=== PATIENT | male | born 1990 | race Caucasian/White ===

== ENCOUNTER 2018-08-22 14:28 | Emergency (ER) | payer MEDICAID ==
[~2018-08-22] VITALS: Ht 188 cm; Wt 117.9 kg
[2018-08-22 14:30] VITALS: BP_SYST 129
--- NOTE | 2018-08-22 15:15 | NUR ---
1515 - Patient to ER bed 4 to gown for evaluation. Side rails up. Report given to KVNG Paredes.
--- NOTE | 2018-08-22 15:35 | NUR ---
Pt c/o intermittent CP. Pt denies pain and this time. Pt describing pain as tingling in face.Pt reports h/o asthma. Pt reports pain started 2 days ago.
[2018-08-22 16:06] LABS: CALCIUM 8.6 mg/dL (8.4-11.0); CREATININE 1.32 mg/dL (0.55-1.30); POTASSIUM 3.7 mmol/L (3.5-5.1)
--- NOTE | 2018-08-22 16:09 | NUR ---
ER at bedside examining patient.
[2018-08-22 16:12] LABS: ALBUMIN 3.8 g/dL (3.4-4.8); TOTAL BILIRUBIN 0.9 mg/dL (0.0-1.0)
[2018-08-22] MEDS ORDERED: LORazepam 1 MG TABLET PO ONE (16:15)
[2018-08-22 16:25] LABS: HEMATOCRIT 40.7 % (36-54); MEAN CORPUSCULAR HEMOGLOBIN 31 pg (27-31); MEAN CORPUSCULAR HGB CONC 34 % (32-36); MEAN CORPUSCULAR VOLUME 91 fL (79.0-98.0); RED BLOOD CELL COUNT(AUTO) 4.48 MIL/uL (4.2-6.2); RED CELL DISTRIBUTION WIDTH 12.6 % (9.0-15.0); WHITE BLOOD COUNT (AUTO) 8.6 K/uL (4.8-10.8)
[2018-08-22 16:26] LABS: BASOPHILS # (AUTO) 0.1 K/uL (0.0-0.2); BASOPHILS % (AUTO) 0.6 % (0.0-2.0); EOSINOPHILS # (AUTO) 0.3 K/uL (0.0-0.4); LYMPHOCYTES # (AUTO) 2.8 K/uL (1.0-5.5); LYMPHOCYTES % (AUTO) 32.4 % (20.5-51.5); MONOCYTES # (AUTO) 0.9 K/uL (0.0-1.0); MONOCYTES % (AUTO) 10.9 % (1.7-9.3); NEUTROPHILS # (AUTO) 4.5 K/uL (1.8-7.7); NEUTROPHILS % (AUTO) 52.1 % (40.0-70.0); PLATELET COUNT (AUTO) 243 K/uL (130-430)
--- NOTE | 2018-08-22 16:40 | NUR ---
Patient given written and verbal discharge instructions and verbalizes understanding. ER MD discussed with patient the results and treatment provided. Patient in stable condition. ID arm band removed. No Rx given. Patient educated on pain management and to follow up with PMD. Pain Scale 0/10 Opportunity for questions provided and answered. Medication side effect fact sheet provided.
[2018-08-22 16:41] VITALS: BP_SYST 135
== END 2018-08-22 16:40 | disposition home or self-care (01) ==
LOC: SED 14:28
DX: R07.89 Other chest pain (principal); J45.909 Unspecified asthma, uncomplicated; F17.220 Nicotine dependence, chewing tobacco, uncomplicated
CPT/HCPCS: 36415; 71045; 80053; 84484; 85025; 93005; 99284

== ENCOUNTER 2019-05-29 20:01 | Emergency (ER) | payer MEDICAID ==
[~2019-05-29] VITALS: Ht 188 cm; Wt 113.4 kg
[2019-05-29 20:05] VITALS: BP_SYST 146
[2019-05-29] MEDS ORDERED: NACL 0.9% 1,000 ML IV ONE (20:30)
[2019-05-29] MEDS ORDERED: ONDANSETRON HCL 4 MG/2 ML VIAL IVP ONE (20:30)
[2019-05-29] MEDS ORDERED: ALBUTEROL SULFATE 0.083% 2.5 MG/3 ML VIAL.NEB INH ONE (20:30)
[2019-05-29 20:38] LABS: BASOPHILS # (AUTO) 0.1 K/uL (0.0-0.2); BASOPHILS % (AUTO) 0.6 % (0.0-2.0); EOSINOPHILS # (AUTO) 0.5 K/uL (0.0-0.4); EOSINOPHILS % (AUTO) 5.1 % (0.0-4.0); HEMATOCRIT 39.8 % (36-54); HEMOGLOBIN 14.1 g/dL (14.0-18.0); LYMPHOCYTES # (AUTO) 2.1 K/uL (1.0-5.5); LYMPHOCYTES % (AUTO) 23.9 % (20.5-51.5); MEAN CORPUSCULAR HEMOGLOBIN 32 pg (27-31); MEAN CORPUSCULAR HGB CONC 35 % (32-36); MEAN CORPUSCULAR VOLUME 90 fL (79.0-98.0); MONOCYTES # (AUTO) 1.5 K/uL (0.0-1.0); MONOCYTES % (AUTO) 16.8 % (1.7-9.3); NEUTROPHILS # (AUTO) 4.8 K/uL (1.8-7.7); NEUTROPHILS % (AUTO) 53.6 % (40.0-70.0); PLATELET COUNT (AUTO) 245 K/uL (130-430); RED BLOOD CELL COUNT(AUTO) 4.43 MIL/uL (4.2-6.2); RED CELL DISTRIBUTION WIDTH 12.6 % (9.0-15.0); WHITE BLOOD COUNT (AUTO) 8.9 K/uL (4.8-10.8)
[2019-05-29 20:52] LABS: CALCIUM 8.7 mg/dL (8.4-11.0); CREATININE 1.31 mg/dL (0.55-1.30); POTASSIUM 3.9 mmol/L (3.5-5.1)
[2019-05-29 21:07] LABS: ALBUMIN 4.2 g/dL (3.4-4.8); TOTAL BILIRUBIN 0.7 mg/dL (0.0-1.0)
[2019-05-29 22:20] VITALS: BP_SYST 141
== END 2019-05-29 22:20 | disposition home or self-care (01) ==
LOC: SED 20:01
DX: R06.02 Shortness of breath (principal); R11.2 Nausea with vomiting, unspecified; J45.909 Unspecified asthma, uncomplicated; F17.220 Nicotine dependence, chewing tobacco, uncomplicated
CPT/HCPCS: 36415; 71045; 80053; 83880; 84484; 85025; 85379; 93005; 94640; 96361; 96374; 99284; J2405; J7030; J7613

== ENCOUNTER 2019-06-16 11:29 | Emergency (ER) | payer MEDICAID ==
[~2019-06-16] VITALS: Ht 188 cm; Wt 113.4 kg
[2019-06-16 11:45] VITALS: BP_SYST 127
--- NOTE | 2019-06-16 12:30 | NUR ---
Patient to ER bed H1 to gown for evaluation. Side rails up.
--- NOTE | 2019-06-16 12:40 | NUR ---
Pt brought self to ED ambulatory AO4 c/o flu like symptoms. Nausea, vomiting, general weakness, no respiratory distress
[2019-06-16] MEDS ORDERED: NACL 0.9% 1,000 ML IV ONE (12:45)
[2019-06-16] MEDS ORDERED: KETOROLAC TROMETHAMINE 30 MG VIAL IVP ONE (12:45)
--- NOTE | 2019-06-16 12:45 | NUR ---
Dr Ellis at bedside to assess pt
--- NOTE | 2019-06-16 12:45 | NUR ---
normal saline bolus and toradol administered
--- NOTE | 2019-06-16 14:39 | NUR ---
Linda purdy in EDM - 06/16/19 at 1442 by SDEDDW Pt brought self to ED ambulatory AO4 c/o flu like symptoms. Nausea, vomiting, general weakness, no respiratory distress
[2019-06-16 15:00] VITALS: BP_SYST 127
--- NOTE | 2019-06-16 15:00 | NUR ---
Patient given written and verbal discharge instructions and verbalizes understanding. ER MD discussed with patient the results and treatment provided. Patient in stable condition. ID arm band removed. IV catheter removed intact and dressing applied, no active bleeding. Rx of Motrin, Prednisone, Tamiflu given. Patient educated on pain management and to follow up with PMD. Pain Scale 0. Opportunity for questions provided and answered. Medication side effect fact sheet provided.
== END 2019-06-16 15:00 | disposition home or self-care (01) ==
LOC: SED 11:29
DX: J11.1 Influenza due to unidentified influenza virus with other respiratory manifestations (principal); J45.909 Unspecified asthma, uncomplicated; F17.220 Nicotine dependence, chewing tobacco, uncomplicated
CPT/HCPCS: 86710; 99283; J7030; 36415

== ENCOUNTER 2019-06-24 20:25 | Emergency (ER) | payer MEDICAID ==
[~2019-06-24] VITALS: Ht 188 cm; Wt 113.4 kg
[2019-06-24 22:44] VITALS: BP_SYST 138
--- NOTE | 2019-06-24 22:50 | NUR ---
Pt placed to ER waiting room in stable condition. Pts child in arms.
--- NOTE | 2019-06-24 23:35 | NUR ---
Received patient AA0x4, w/ cc of flu like s/s. NAD, NOTED. Pt. made comfortable. Pending ED MD assessment
[2019-06-25] MEDS ORDERED: KETOROLAC TROMETHAMINE 60 MG/2 ML VIAL IM ONE (00:15)
[2019-06-25 00:50] VITALS: BP_SYST 134
--- NOTE | 2019-06-25 00:52 | NUR ---
Patient given written and verbal discharge instructions and verbalizes understanding. ER MD discussed with patient the results and treatment provided. Patient in stable condition. ID arm band removed. Rx for sudafed, motrin, norco, and prednisone given. Patient educated on pain management and to follow up with PMD. Pain Scale 5/10. Opportunity for questions provided and answered. Medication side effect fact sheet provided.
== END 2019-06-25 00:52 | disposition home or self-care (01) ==
LOC: SED 20:25
DX: J32.9 Chronic sinusitis, unspecified (principal); R05 Cough; J45.909 Unspecified asthma, uncomplicated; F17.200 Nicotine dependence, unspecified, uncomplicated
CPT/HCPCS: 86710; 96372; 99283; J1885; 36415

== ENCOUNTER 2019-07-05 17:26 | Emergency (ER) | payer MEDICAID ==
[~2019-07-05] VITALS: Ht 188 cm; Wt 113.4 kg
[2019-07-05 17:30] VITALS: BP_SYST 134
--- NOTE | 2019-07-05 17:30 | NUR ---
Patient triaged and placed in waiting room. VSS and patient appears in no acute distress at this time. Accompanied by SELF, awaiting available bed, and MD notified of need for MSE.
--- NOTE | 2019-07-05 20:30 | NUR ---
ER at bedside examining patient.
--- NOTE | 2019-07-05 20:30 | NUR ---
Pt brought in by self. Pt states that he had Eye discharge for the past few days. He states that he has reddnes and discharge, with burning. Pt denies chest pain, nausea, vomiting, diarrhea, Shortness of breath. Pt denies any other medical compliant at this time. Pt resting in bed, no acute distress. VSS
--- NOTE | 2019-07-05 20:30 | NUR ---
Patient to ER hallway bed for evaluation. Side rails up.
--- NOTE | 2019-07-05 21:40 | NUR ---
Patient given written and verbal discharge instructions and verbalizes understanding. ER MD discussed with patient the results and treatment provided. Patient in stable condition. ID arm band removed. NO IV Rx of Antibiotic eye ointment given. Patient educated on pain management and to follow up with PMD. Pain Scale 0/10. Opportunity for questions provided and answered. Medication side effect fact sheet provided.
== END 2019-07-05 21:40 | disposition home or self-care (01) ==
LOC: SED 17:26
DX: H10.9 Unspecified conjunctivitis (principal); J45.909 Unspecified asthma, uncomplicated
CPT/HCPCS: 99283

== ENCOUNTER 2019-12-04 15:54 | Emergency (ER) | payer MEDICAID ==
[~2019-12-04] VITALS: Ht 188 cm; Wt 113.4 kg
[2019-12-04 16:09] VITALS: BP_SYST 162
--- NOTE | 2019-12-04 16:14 | NUR ---
PATIENT RETURNED TO WAITING ROOM PENDING BED AVAILABILITY
--- NOTE | 2019-12-04 21:00 | NUR ---
in gurney, sitting up. No acute distess noted.
--- NOTE | 2019-12-04 21:05 | NUR ---
ER at bedside examining patient.
--- NOTE | 2019-12-04 22:00 | NUR ---
pt in [facility].
[2019-12-04 22:18] VITALS: BP_SYST 162
== END 2019-12-04 22:18 | disposition home or self-care (01) ==
LOC: SED 15:54
DX: M25.552 Pain in left hip (principal)
CPT/HCPCS: 72170-TC; 73502; 99284

== ENCOUNTER 2020-04-17 08:46 | Emergency (ER) | payer MEDICAID ==
[~2020-04-17] VITALS: Ht 188 cm; Wt 122.5 kg
[2020-04-17 08:53] VITALS: BP_SYST 145
--- NOTE | 2020-04-17 08:56 | NUR ---
Patient to ER bed 03 to gown for evaluation. Side rails up.
--- NOTE | 2020-04-17 09:18 | NUR ---
Pt came to ER after he felt hypoglycemic last night. He was experiencing dizziness, sweatiness, and feeling weak. He recently saw primary physician who said his A1C is near diabetic. Pt sugar checked 84 at this time.
--- NOTE | 2020-04-17 09:25 | NUR ---
ER at bedside examining patient.
[2020-04-17 10:08] LABS: CALCIUM 8.5 mg/dL (8.4-11.0); CREATININE 1.19 mg/dL (0.55-1.30); POTASSIUM 4.4 mmol/L (3.5-5.1)
[2020-04-17 10:10] LABS: BASOPHILS % (AUTO) 0.3 % (0.0-2.0); EOSINOPHILS # (AUTO) 0.1 K/uL (0.0-0.4); EOSINOPHILS % (AUTO) 0.7 % (0.0-4.0); HEMOGLOBIN 14.8 g/dL (14.0-18.0); LYMPHOCYTES # (AUTO) 0.7 K/uL (1.0-5.5); LYMPHOCYTES % (AUTO) 8.5 % (20.5-51.5); MEAN CORPUSCULAR HEMOGLOBIN 31 pg (27-31); MEAN CORPUSCULAR HGB CONC 34 % (32-36); MEAN CORPUSCULAR VOLUME 90 fL (79.0-98.0); MONOCYTES # (AUTO) 0.7 K/uL (0.0-1.0); MONOCYTES % (AUTO) 8.2 % (1.7-9.3); NEUTROPHILS # (AUTO) 6.8 K/uL (1.8-7.7); NEUTROPHILS % (AUTO) 82.3 % (40.0-70.0); PLATELET COUNT (AUTO) 200 K/uL (130-430); RED BLOOD CELL COUNT(AUTO) 4.76 MIL/uL (4.2-6.2); RED CELL DISTRIBUTION WIDTH 12.9 % (9.0-15.0); WHITE BLOOD COUNT (AUTO) 8.3 K/uL (4.8-10.8)
[2020-04-17 10:14] LABS: TOTAL BILIRUBIN 0.9 mg/dL (0.0-1.0)
[2020-04-17] MEDS ORDERED: ONDANSETRON 4 MG ODT TAB PO ONE (10:45)
--- NOTE | 2020-04-17 10:45 | NUR ---
Pt taken to ultrasound via wheelchair
[2020-04-17] MEDS ORDERED: ONDANSETRON 4 MG ODT TAB ONE (10:56)
[2020-04-17 12:26] VITALS: BP_SYST 145
--- NOTE | 2020-04-17 12:28 | NUR ---
Patient given written and verbal discharge instructions and verbalizes understanding. ER MD discussed with patient the results and treatment provided. Patient in stable condition. ID arm band removed. Rx of Naprosyn given. Patient educated on pain management and to follow up with PMD. Pain Scale 0/10 . Opportunity for questions provided and answered. Medication side effect fact sheet provided.
[2020-04-21 00:06] LABS: CHLAMYDIA TRACHOMATIS NAA Negative (Negative); NEISSERIA GONORRHOEAE NAA Negative (Negative)
== END 2020-04-17 12:28 | disposition home or self-care (01) ==
LOC: SED 08:46
DX: N50.811 Right testicular pain (principal); E86.0 Dehydration; A08.4 Viral intestinal infection, unspecified; R42 Dizziness and giddiness; J45.909 Unspecified asthma, uncomplicated
CPT/HCPCS: 36415; 71045; 76870; 80053; 85025; 87491; 87591; 93005; 99285; Q0162

== ENCOUNTER 2020-05-01 02:32 | Emergency (ER) | payer MEDICAID ==
[~2020-05-01] VITALS: Ht 188 cm; Wt 127.0 kg
[2020-05-01 02:35] VITALS: BP_SYST 129
--- NOTE | 2020-05-01 02:35 | NUR ---
Patient to ER bed 5 to gown for evaluation. Side rails up. Report given to GREGOR.
--- NOTE | 2020-05-01 02:40 | NUR ---
PT AAO AND AMBULATORY REPORTING WORSENING HIVES ALL OVER HIS BODY. PT REPORTS THAT ONSET BEGAN AT 2200 TONIGHT AND THAT HE TOOK BENADRYL AT HOME THAT DID NOT PROVIDE RELIEF. IT IS UNKNOWN WHAT HE EXPOSED HIMSELF TO THAT PRODUCED ALLERGY. V/S STABLE WITH NO S/S OF DISTRESS.
--- NOTE | 2020-05-01 02:42 | NUR ---
ER Dr. WILSON at bedside examining patient.
[2020-05-01] MEDS ORDERED: methylPREDNISolone SOD SUCC/PF 62.5 MG/ML VIAL IM ONE (02:45)
--- NOTE | 2020-05-01 02:50 | NUR ---
Pt tolerated solu-medrol IM well. No complaints
[2020-05-01 03:00] VITALS: BP_SYST 129
--- NOTE | 2020-05-01 03:00 | NUR ---
Patient given written and verbal discharge instructions and verbalizes understanding. ER MD discussed with patient the results and treatment provided. Patient in stable condition. ID arm band removed. Rx of prednisone given. Patient educated on pain management and to follow up with PMD. Opportunity for questions provided and answered. Medication side effect fact sheet provided.
[2020-05-01] MEDS ORDERED: methylPREDNISolone SOD SUCC/PF 62.5 MG/ML VIAL ONE (03:07)
== END 2020-05-01 03:00 | disposition home or self-care (01) ==
LOC: SED 02:32
DX: L50.9 Urticaria, unspecified (principal); J45.909 Unspecified asthma, uncomplicated; F17.290 Nicotine dependence, other tobacco product, uncomplicated
CPT/HCPCS: 99283; J2930

== ENCOUNTER 2020-05-02 22:28 | Emergency (ER) | payer MEDICAID ==
[~2020-05-02] VITALS: Ht 188 cm; Wt 127.0 kg
[2020-05-02 22:40] VITALS: BP_SYST 148
[2020-05-02 23:18] VITALS: BP_SYST 148
== END 2020-05-02 23:18 | disposition home or self-care (01) ==
LOC: SED 22:28
DX: L50.9 Urticaria, unspecified (principal); R03.0 Elevated blood-pressure reading, without diagnosis of hypertension; J45.909 Unspecified asthma, uncomplicated
CPT/HCPCS: 99282

== ENCOUNTER 2020-06-01 20:35 | Emergency (ER) | payer MEDICAID ==
[~2020-06-01] VITALS: Ht 188 cm; Wt 119.3 kg
[2020-06-01 20:40] VITALS: BP_SYST 150
[2020-06-02 00:21] VITALS: BP_SYST 140
== END 2020-06-02 00:21 | disposition home or self-care (01) ==
LOC: SED 20:35
DX: M25.562 Pain in left knee (principal); J45.909 Unspecified asthma, uncomplicated
CPT/HCPCS: 73564; 99283

== ENCOUNTER 2020-07-11 19:55 | Emergency (ER) | payer MEDICAID ==
[~2020-07-11] VITALS: Ht 157.5 cm; Wt 120.2 kg
[2020-07-11 20:10] VITALS: BP_SYST 151
[2020-07-11 21:07] VITALS: BP_SYST 128
== END 2020-07-11 21:08 | disposition home or self-care (01) ==
LOC: SED 19:55
DX: U07.1 COVID-19 (principal); J06.9 Acute upper respiratory infection, unspecified; J45.909 Unspecified asthma, uncomplicated
CPT/HCPCS: 71045; 99284; U0003; C9803

== ENCOUNTER 2021-07-06 23:53 | Emergency (ER) | payer MEDICAID ==
[~2021-07-06] VITALS: Ht 188 cm; Wt 122.5 kg
[~2021-07-06 23:53] MED LIST: AUG875 PO; HYDR-3917 PO
[2021-07-07] VITALS: BP_SYST 148
[2021-07-07 01:25] LABS: HEMOGLOBIN 13.9 g/dL (14.0-18.0); MEAN CORPUSCULAR HEMOGLOBIN 30 pg (27-31); MEAN CORPUSCULAR HGB CONC 34 % (32-36); MEAN CORPUSCULAR VOLUME 90 fL (79.0-98.0); MONOCYTES # (AUTO) 1.1 K/uL (0.0-1.0)
[2021-07-07 01:29] LABS: CALCIUM 8.9 mg/dL (8.4-11.0); CREATININE 1.01 mg/dL (0.55-1.30); POTASSIUM 3.9 mmol/L (3.5-5.1)
[2021-07-07 01:40] LABS: ALBUMIN 4.1 g/dL (3.4-4.8); TOTAL BILIRUBIN 0.6 mg/dL (0.0-1.0)
[2021-07-07 02:35] LABS: BASOPHILS % (AUTO) 0.5 % (0.0-2.0); EOSINOPHILS # (AUTO) 0.3 K/uL (0.0-0.4); HEMATOCRIT 41.4 % (36-54); LYMPHOCYTES # (AUTO) 3.9 K/uL (1.0-5.5); MONOCYTES % (AUTO) 11.9 % (1.7-9.3); NEUTROPHILS % (AUTO) 42.6 % (40.0-70.0); PLATELET COUNT (AUTO) 241 K/uL (130-430); RED BLOOD CELL COUNT(AUTO) 4.61 MIL/uL (4.2-6.2); RED CELL DISTRIBUTION WIDTH 12.9 % (9.0-15.0); WHITE BLOOD COUNT (AUTO) 9.4 K/uL (4.8-10.8)
[2021-07-07] MEDS ORDERED: IBUP-1969 PO (03:30)
[2021-07-07 03:42] VITALS: BP_SYST 143
[2021-07-08] MEDS ORDERED: HYDR-3917 PO (17:10)
[2021-07-08] MEDS ORDERED: IBUP-1971 PO (17:10)
== END 2021-07-07 03:42 | disposition home or self-care (01) ==
LOC: SED 23:53
DX: K80.20 Calculus of gallbladder without cholecystitis without obstruction (principal); J45.909 Unspecified asthma, uncomplicated; Z79.899 Other long term (current) drug therapy
CPT/HCPCS: 36415; 76705; 80053; 83690; 85025; 99284

== ENCOUNTER 2021-07-08 13:55 | Inpatient (IN) | payer MEDICAID ==
[~2021-07-08] VITALS: Ht 188 cm; Wt 122.5 kg
[~2021-07-08 13:55] MED LIST changes: +IBUP-1969 PO
[2021-07-08 14:44] VITALS: BP_SYST 131
[2021-07-08] MEDS ORDERED: KETOROLAC TROMETHAMINE 60 MG/2 ML VIAL IM ONE ×2 (15:00→19:15)
--- NOTE | 2021-07-08 15:15 | NUR ---
AFTER GETTING BLOOD DRAWN, PT BROUGHT BACK TO BED #2 AND REPORT GIVEN TO NURSE
--- NOTE | 2021-07-08 15:15 | NUR ---
pt. in lab for blood draw
--- NOTE | 2021-07-08 15:32 | NUR ---
RECEIEVED PT, LAYING ON GURNEY. PT IN NO APPARENT DISTRESS. RESP EVEN AND UNLABORED ON RA @99%. REPORT COMING TO ER FOR RIGHT UPPER AND LOWER ABDOMINAL PAIN WORSENING FOR THE LAST 3 DAYS. DENIES ANY NAUSEA/VOMITIING. DENIES ANY FEVERS. MILD DYSURIA SINCE AM. SKIN W/D/I. URINE CLLECTED.
[2021-07-08 16:01] LABS: CREATININE 0.97 mg/dL (0.55-1.30); POTASSIUM 4.2 mmol/L (3.5-5.1)
[2021-07-08 16:10] LABS: BASOPHILS % (AUTO) 0.2 % (0.0-2.0); EOSINOPHILS # (AUTO) 0.1 K/uL (0.0-0.4); EOSINOPHILS % (AUTO) 1.9 % (0.0-4.0); HEMATOCRIT 41.6 % (36-54); HEMOGLOBIN 14.3 g/dL (14.0-18.0); LYMPHOCYTES # (AUTO) 0.6 K/uL (1.0-5.5); LYMPHOCYTES % (AUTO) 9.1 % (20.5-51.5); MEAN CORPUSCULAR HEMOGLOBIN 31 pg (27-31); MEAN CORPUSCULAR HGB CONC 34 % (32-36); MEAN CORPUSCULAR VOLUME 89 fL (79.0-98.0); MONOCYTES # (AUTO) 0.7 K/uL (0.0-1.0); MONOCYTES % (AUTO) 10.5 % (1.7-9.3); NEUTROPHILS # (AUTO) 5.5 K/uL (1.8-7.7); NEUTROPHILS % (AUTO) 78.3 % (40.0-70.0); PLATELET COUNT (AUTO) 201 K/uL (130-430); RED BLOOD CELL COUNT(AUTO) 4.67 MIL/uL (4.2-6.2); RED CELL DISTRIBUTION WIDTH 12.8 % (9.0-15.0)
[2021-07-08 16:14] LABS: ALBUMIN 4.3 g/dL (3.4-4.8); TOTAL BILIRUBIN 0.9 mg/dL (0.0-1.0)
[2021-07-08 16:32] LABS: BILIRUBIN,URINE NEGATIVE (NEGATIVE); BLOOD, URINE NEGATIVE (NEGATIVE); CLARITY/URINE CLEAR (CLEAR); COLOR,URINE YELLOW (YELLOW); GLUCOSE,URINE NEGATIVE (NEGATIVE); KETONES,URINE NEGATIVE (NEGATIVE); LEUKOCYTE ESTERASE ,URINE NEGATIVE (NEGATIVE); NITRITE, URINE NEGATIVE (NEGATIVE); PROTEIN URINE NEGATIVE (NEGATIVE); UROBILINOGEN,URINE 0.2 (0.2-1.0)
[2021-07-08 16:58] LABS: C-REACTIVE PROTEIN QUANT 0.4 mg/dL (0-0.5)
[2021-07-08] MEDS ORDERED: HYDR-3917 PO (17:10)
[2021-07-08] MEDS ORDERED: IBUP-1971 PO (17:10)
[2021-07-08] MEDS ORDERED: MORPHINE SULFATE 10 MG/ML VIAL IM ONE (17:15)
--- NOTE | 2021-07-08 17:29 | NUR ---
PT HAS ORDERS FOR DISCHARGE WITH MORPHINE IM ORDERS. PT REFUSES MORPHINE, DR CASILLAS INFORMED. ALSO, PT STATES HIS PCP ANTED TO ADMIT HIM FOR GALLSTONES REMOVAL AND DOES NOT WANT TO BE DISCHARGED, WANTS TO BE ADMITTED. DR CASILLAS INFORMED, NOW AT BEDSIDE FOR RE-EXAM.
--- NOTE | 2021-07-08 17:48 | NUR ---
Notified ED Admitting regarding Dr. Reyez request for admission. will notify insurance assistant
[2021-07-08] MEDS: D5/0.45 NS 1,000 ML IV SCH (19:05)
--- NOTE | 2021-07-08 19:06 | NUR ---
PT CONT TO REPORT ABD PAIN AND REQUESTING TORADOL,, STATES HE DOES NOT LIKE MORPHINE. DR CASILLAS INFORMED.
--- NOTE | 2021-07-08 21:00 | NUR ---
Pt report received. Pt denies c/o pain or discomfort, no needs verbalized at this time. Pt has 20 GA PIV to RAC from previous shift that is patent and secure. JOEL MONTEIRO.
[2021-07-08] MEDS ORDERED: MORPHINE 2 MG/ML INJ. SYRINGE IVP PRN (22:45)
[2021-07-08] MEDS ORDERED: NALOXONE HCL 0.4 MG/ML AMP (NARCAN) IVP PRN (22:45)
[2021-07-08] MEDS ORDERED: LORazepam 2 MG/ML VIAL IVP PRN (22:45)
--- NOTE | 2021-07-08 23:19 | NUR ---
Patient will be admitted to care of Wali Quan Admitted to Med/Surg unit. Will go to room 133B. Belongings list completed. Complete and up to date summary report printed. SBAR report to be given at bedside with opportunity for questions.
[2021-07-08 23:38] VITALS: BP_SYST 147
--- NOTE | 2021-07-08 23:43 | NUR ---
CONSULTATION CALLED FOR DR. SHARP FOR CONSULT OF GALL[facility]ONES ORDER BY DR. JOHNSTON SPOKE WITH MARIO ALBERTO
[2021-07-08] MEDS: ONDANSETRON HCL 4 MG/2 ML VIAL IVP PRN (23:47)
[2021-07-08] MEDS: MORPHINE 4 MG INJ. 4 MG/ML VIAL IVP PRN (23:48)
--- NOTE | 2021-07-08 23:51 | NUR ---
ADMISSION: The patient, AGENT,MOMO Fink, 30 y/o, M admitted by KEN JOHNSTON MD, was given written information regarding hospital policies, unit procedures and contact persons. Valuables were checked and procedures explained , call raya instructions given Patient verbalize understanding .
--- NOTE | 2021-07-09 00:09 | NUR ---
CONSULTATION CALLED FOR DR. CARLOZ EVANS AIRCRAFT LAUNCH AND RECOVERY TECHNICIAN FOR CONSULT OF GALLSTONES ORDER BY DR. JOHNSTON SPOKE WITH ALICIA
--- NOTE | 2021-07-09 00:27 | NUR ---
ZOFRAN 4 MG IVP given FOR GI UPSET , monitor .
--- NOTE | 2021-07-09 00:27 | NUR ---
MORPHINE 4 MG IVP given for acute pain , monitor .
--- NOTE | 2021-07-09 05:34 | NUR ---
Hourly Rounding patient Resting chest movement symmetrical call raya given to patient .
[2021-07-09] MEDS: D5/0.45 NS 1,000 ML IV SCH ×3 (05:37→15:56)
[2021-07-09 08:00] VITALS: BP_SYST 131
[2021-07-09 08:02] LABS: BASOPHILS % (AUTO) 0.4 % (0.0-2.0); EOSINOPHILS # (AUTO) 0.1 K/uL (0.0-0.4); EOSINOPHILS % (AUTO) 1.8 % (0.0-4.0); HEMOGLOBIN 13.4 g/dL (14.0-18.0); LYMPHOCYTES # (AUTO) 1.3 K/uL (1.0-5.5); LYMPHOCYTES % (AUTO) 20.5 % (20.5-51.5); MEAN CORPUSCULAR HEMOGLOBIN 31 pg (27-31); MEAN CORPUSCULAR HGB CONC 34 % (32-36); MEAN CORPUSCULAR VOLUME 89 fL (79.0-98.0); MONOCYTES # (AUTO) 1.1 K/uL (0.0-1.0); MONOCYTES % (AUTO) 16.8 % (1.7-9.3); NEUTROPHILS # (AUTO) 3.8 K/uL (1.8-7.7); NEUTROPHILS % (AUTO) 60.5 % (40.0-70.0); PLATELET COUNT (AUTO) 189 K/uL (130-430); RED BLOOD CELL COUNT(AUTO) 4.37 MIL/uL (4.2-6.2); RED CELL DISTRIBUTION WIDTH 12.5 % (9.0-15.0); WHITE BLOOD COUNT (AUTO) 6.4 K/uL (4.8-10.8)
[2021-07-09 08:04] LABS: CALCIUM 8.3 mg/dL (8.4-11.0); CREATININE 1.1 mg/dL (0.55-1.30); PHOSPHORUS 4.5 mg/dL (2.7-4.5); POTASSIUM 3.9 mmol/L (3.5-5.1)
--- NOTE | 2021-07-09 08:15 | NUR ---
Initial Note Patient awake, alert, and oriented x 4. Reporting pain 9/10 to abdomen. Will review medications and administer pain medications as ordered. No cough or fever present. Call light and bedside table in reach. Bed locked in lowest position. Encouraged to call.
[2021-07-09] MEDS: MORPHINE 4 MG INJ. 4 MG/ML VIAL IVP PRN ×3 (09:38→20:53)
--- NOTE | 2021-07-09 12:00 | NUR ---
Notes Patient eating lunch. Pain is controlled, no distress. Call light in reach and bed in lowest position. Encouraged to call.
[2021-07-09 16:07] VITALS: BP_SYST 143
--- NOTE | 2021-07-09 16:09 | NUR ---
Notes Patient resting in bed. States pain is controlled at this time. No cough or fever. Needs addressed. Call light and bedside table within reach. Bed in lowest position. Encouraged to call.
--- NOTE | 2021-07-09 18:48 | NUR ---
Closing Note Patient resting in bed, no pain or distress. Safety and isolation precautions in place throughout shift. Call light and bedside table in reach. Will continue to monitor and endorse to night nurse.
[2021-07-09] MEDS ORDERED: ALBUTEROL SULFATE 0.083% 2.5 MG/3 ML VIAL.NEB INH PRN (19:00)
[2021-07-09] MEDS ORDERED: IPRATROPIUM BROM 0.5 MG/2.5 ML VIAL.NEB (ATROVENT) INH PRN (19:00)
[2021-07-09 20:30] VITALS: BP_SYST 135
[2021-07-09] MEDS: AZITHROMYCIN 500 MG in NS 250 ML IV SCH (20:48)
[2021-07-09] MEDS: cefTRIAXone 1 GM IVPB PREMIX 50 ML IV SCH (20:49)
[2021-07-09] MEDS: ONDANSETRON HCL 4 MG/2 ML VIAL IVP PRN (20:52)
--- NOTE | 2021-07-09 21:35 | NUR ---
MORPHINE sulfate 4 MG ivp administer for general discomfort / off loading with pillows also helpful .
[2021-07-09 23:56] VITALS: BP_SYST 143
--- NOTE | 2021-07-10 | NUR ---
ZOFRAN 4 MG IVP administer for GI upset & helpful .
[2021-07-10 01:00] VITALS: BP_SYST 132
--- NOTE | 2021-07-10 03:13 | NUR ---
Hourly Rounding patient Resting is verbally Responsive HOB elevated chest movement symmetrical 02 SAT 96 % on Room Air call raya with patient .
[2021-07-10] MEDS: D5/0.45 NS 1,000 ML IV SCH ×3 (03:20→16:15)
[2021-07-10] MEDS: MORPHINE 4 MG INJ. 4 MG/ML VIAL IVP PRN ×3 (06:30→16:04)
--- NOTE | 2021-07-10 07:40 | NUR ---
CONSULTATION PAGED/CALLED Reason for Consultation: [] COVID Person Who was Notified: [] JORGE Consulting Physician: [] DR ALFREDO MARADIAGA Senior Clinical Sas Programmer Specialty: [] ID Ordering Physician: [] DR JOHNSTON
[2021-07-10 08:00] VITALS: BP_SYST 144
--- NOTE | 2021-07-10 08:00 | NUR ---
OPENING NOTE Received shift report from shift engineer RN. Patient currently resting in bed and respirations remain even and non-labored on room air. IV is patent and infusing fluids as ordered. Bed locked in lowest position and call light is within reach. PUI precautions remain in place. Will continue to monitor. Addendum: 07/10/21 at 1046 by Khushboo Gao RN COVID isolation precautions remain in place.
[2021-07-10 08:34] LABS: BASOPHILS % (AUTO) 0.4 % (0.0-2.0); EOSINOPHILS # (AUTO) 0.2 K/uL (0.0-0.4); EOSINOPHILS % (AUTO) 4.7 % (0.0-4.0); HEMATOCRIT 40.2 % (36-54); HEMOGLOBIN 13.9 g/dL (14.0-18.0); LYMPHOCYTES # (AUTO) 1.5 K/uL (1.0-5.5); LYMPHOCYTES % (AUTO) 33.8 % (20.5-51.5); MEAN CORPUSCULAR HEMOGLOBIN 30 pg (27-31); MEAN CORPUSCULAR HGB CONC 35 % (32-36); MEAN CORPUSCULAR VOLUME 88 fL (79.0-98.0); MONOCYTES # (AUTO) 0.8 K/uL (0.0-1.0); MONOCYTES % (AUTO) 17.7 % (1.7-9.3); NEUTROPHILS % (AUTO) 43.4 % (40.0-70.0); PLATELET COUNT (AUTO) 178 K/uL (130-430); RED BLOOD CELL COUNT(AUTO) 4.57 MIL/uL (4.2-6.2); RED CELL DISTRIBUTION WIDTH 12.4 % (9.0-15.0); WHITE BLOOD COUNT (AUTO) 4.5 K/uL (4.8-10.8)
--- NOTE | 2021-07-10 08:54 | NUR ---
Notes Spoke with Dr. Gill regarding plan of care; states patient may follow up on outpatient basis after quarantine period.
[2021-07-10 09:09] LABS: ALBUMIN 3.3 g/dL (3.4-4.8); C-REACTIVE PROTEIN QUANT 4.8 mg/dL (0-0.5); CALCIUM 8.4 mg/dL (8.4-11.0); CREATININE 0.97 mg/dL (0.55-1.30); POTASSIUM 3.8 mmol/L (3.5-5.1); TOTAL BILIRUBIN 0.7 mg/dL (0.0-1.0)
--- NOTE | 2021-07-10 12:00 | NUR ---
RN ROUNDING Patient resting in bed. Patient reported 5/10 abdominal pain controlled by PRN morphine. Bed locked in lowest position and call light is within reach. Will continue to monitor.
[2021-07-10 12:05] VITALS: BP_SYST 150
[2021-07-10 13:11] LABS: ERYTHROCYTE SEDIMENTATION RATE 9 MM/HR (0-15)
[2021-07-10] MEDS: ONDANSETRON HCL 4 MG/2 ML VIAL IVP PRN ×2 (14:37→21:56)
--- NOTE | 2021-07-10 15:00 | NUR ---
SHOWER Patient requested shower in room. Provided toiletries and hygiene supplies. Assistance provided. Encouraged to call.
[2021-07-10 16:17] VITALS: BP_SYST 146
--- NOTE | 2021-07-10 18:35 | NUR ---
CLOSING NOTE Patient currently eating dinner in bed and respirations remain even and non-labored on room air. IV is patent and infusing fluids as ordered. All needs met throughout shift. Bed locked in lowest position and call light is within reach. COVID isolation precautions remain in place. Will endorse to table games shift manager RN.
--- NOTE | 2021-07-10 19:12 | NUR ---
PATIENT LAYING IN BED, RESTING WITH EYES OPEN, NO C/O PAIN OR S/S OR DISTRESS. PATIENT'S VSS, CHEST RISE AND FALL SYMMETRICAL. Addendum: 07/11/21 at [address] [facility] middleware solutions architect PATIENT LAYING IN BED, RESTING WITH EYES OPEN, NO C/O PAIN OR S/S OR DISTRESS. PATIENT'S VSS, CHEST RISE AND FALL SYMMETRICAL. BED IN LOW AND LOCKED POSITION, 3 BED RAILS UP AND CALL LIGHT WITHIN REACH.
[2021-07-10 20:00] VITALS: BP_SYST 144
[2021-07-10] MEDS: cefTRIAXone 1 GM IVPB PREMIX 50 ML IV SCH (21:57)
[2021-07-10] MEDS: AZITHROMYCIN 500 MG in NS 250 ML IV SCH (22:06)
--- NOTE | 2021-07-11 | NUR ---
Patient resting in bed with eyes closed, no c/o pain or s/s of discomfort. Patient VSS, lung sounds clear and chest rise and fall symmetrical. Addendum: 07/11/21 at 0744 by [employer] in tube conversion technician Patient resting in bed with eyes closed, no c/o pain or s/s of discomfort. Patient VSS, lung sounds clear and chest rise and fall symmetrical. Bed in low and locked position, bed rails up and call light within reach of patient. Report given to AM shift RN, no further questions from AM shift RN. Addendum: 07/11/21 at 0746 by [employer] in tube conversion technician Patient resting in bed with eyes closed, no c/o pain or s/s of discomfort. Patient VSS, lung sounds clear and chest rise and fall symmetrical. Bed in low and locked position, 3 bed rails up and call light within reach of patient. Report given to AM shift RN, no further questions from AM shift RN. Addendum: 07/11/21 at 0747 by [employer] in tube conversion technician Patient resting in bed with eyes closed, no c/o pain or s/s of discomfort. Patient VSS, lung sounds clear and chest rise and fall symmetrical. Bed in low and locked position, 3 bed rails up and call light within reach of patient.
[2021-07-11 00:03] VITALS: BP_SYST 142
[2021-07-11] MEDS ORDERED: HYDROcodone/ACETAMIN 10-325 MG TAB PO PRN (00:30)
[2021-07-11] MEDS ORDERED: NALOXONE HCL 0.4 MG/ML AMP (NARCAN) IVP PRN ×2 (00:30)
[2021-07-11] MEDS ORDERED: HYDROcodone/ACETAMIN 5-325 MG TAB (NORCO/ VICODIN) PO PRN (00:30)
[2021-07-11 04:11] VITALS: BP_SYST 140
[2021-07-11] MEDS: D5/0.45 NS 1,000 ML IV SCH ×2 (06:30→17:39)
--- NOTE | 2021-07-11 07:30 | NUR ---
Patient resting in bed with eyes closed, no c/o pain or s/s of discomfort. Patient VSS, lung sounds clear and chest rise and fall symmetrical. Bed in low and locked position, 3 bed rails up and call light within reach of patient. Report given to AM shift RN, no further questions from AM shift RN.
[2021-07-11 07:44] LABS: CALCIUM 8.5 mg/dL (8.4-11.0); CREATININE 0.93 mg/dL (0.55-1.30)
[2021-07-11 07:54] LABS: BASOPHILS % (AUTO) 0.5 % (0.0-2.0); EOSINOPHILS # (AUTO) 0.3 K/uL (0.0-0.4); EOSINOPHILS % (AUTO) 5.6 % (0.0-4.0); HEMATOCRIT 40.2 % (36-54); HEMOGLOBIN 13.9 g/dL (14.0-18.0); LYMPHOCYTES # (AUTO) 1.9 K/uL (1.0-5.5); LYMPHOCYTES % (AUTO) 41.4 % (20.5-51.5); MEAN CORPUSCULAR HEMOGLOBIN 31 pg (27-31); MEAN CORPUSCULAR HGB CONC 34 % (32-36); MEAN CORPUSCULAR VOLUME 89 fL (79.0-98.0); MONOCYTES # (AUTO) 0.8 K/uL (0.0-1.0); MONOCYTES % (AUTO) 17.5 % (1.7-9.3); NEUTROPHILS # (AUTO) 1.6 K/uL (1.8-7.7); PLATELET COUNT (AUTO) 202 K/uL (130-430); RED BLOOD CELL COUNT(AUTO) 4.55 MIL/uL (4.2-6.2); RED CELL DISTRIBUTION WIDTH 12.7 % (9.0-15.0); WHITE BLOOD COUNT (AUTO) 4.6 K/uL (4.8-10.8)
[2021-07-11 08:00] VITALS: BP_SYST 128
[2021-07-11 10:30] LABS: C-REACTIVE PROTEIN QUANT 2.6 mg/dL (0-0.5)
[2021-07-11 12:00] VITALS: BP_SYST 131
[2021-07-11 14:04] LABS: ERYTHROCYTE SEDIMENTATION RATE 12 MM/HR (0-15)
[2021-07-11 21:00] VITALS: BP_SYST 129
--- NOTE | 2021-07-11 21:00 | NUR ---
Patient out of bed ambulating steady gait , assist to Rest Room Patient did Take shower in room , did tolerate no SOB noted Respirations Remain Regular also unlabored safety measures implemented & call raya given to patient .
[2021-07-12 01:00] VITALS: BP_SYST 134
[2021-07-12] MEDS ORDERED: LEVOFLOXACIN IN DEXTROSE 5 % 100 ML IV ONE (02:47)
[2021-07-12] MEDS: LEVOFLOXACIN IN DEXTROSE 5 % 100 ML IV SCH ×2 (03:00→21:43)
[2021-07-12] MEDS: D5/0.45 NS 1,000 ML IV SCH ×3 (03:14→21:43)
--- NOTE | 2021-07-12 05:09 | NUR ---
Patient Refusing IVF wants IV taken out of Right AC & Refusing IV Re insertion , patient states wants to wait .
--- NOTE | 2021-07-12 05:15 | NUR ---
[place] Tablet 5/325 MG po administer for general pain 5/10 and helpful , Respirations Remain Regular also unlabored patient Resting this hour .
[2021-07-12 07:28] LABS: BASOPHILS % (AUTO) 0.3 % (0.0-2.0); EOSINOPHILS # (AUTO) 0.3 K/uL (0.0-0.4); EOSINOPHILS % (AUTO) 4.3 % (0.0-4.0); HEMATOCRIT 41.6 % (36-54); HEMOGLOBIN 14.8 g/dL (14.0-18.0); LYMPHOCYTES # (AUTO) 2.8 K/uL (1.0-5.5); LYMPHOCYTES % (AUTO) 45.4 % (20.5-51.5); MEAN CORPUSCULAR HEMOGLOBIN 31 pg (27-31); MEAN CORPUSCULAR HGB CONC 36 % (32-36); MEAN CORPUSCULAR VOLUME 87 fL (79.0-98.0); MONOCYTES # (AUTO) 0.7 K/uL (0.0-1.0); MONOCYTES % (AUTO) 11.4 % (1.7-9.3); NEUTROPHILS # (AUTO) 2.3 K/uL (1.8-7.7); NEUTROPHILS % (AUTO) 38.6 % (40.0-70.0); PLATELET COUNT (AUTO) 221 K/uL (130-430); RED BLOOD CELL COUNT(AUTO) 4.79 MIL/uL (4.2-6.2); RED CELL DISTRIBUTION WIDTH 12.5 % (9.0-15.0); WHITE BLOOD COUNT (AUTO) 6.1 K/uL (4.8-10.8)
[2021-07-12 08:00] VITALS: BP_SYST 129
[2021-07-12 08:12] LABS: ALBUMIN 3.7 g/dL (3.4-4.8); CALCIUM 9.1 mg/dL (8.4-11.0); CREATININE 0.96 mg/dL (0.55-1.30); POTASSIUM 4.3 mmol/L (3.5-5.1); TOTAL BILIRUBIN 0.9 mg/dL (0.0-1.0)
[2021-07-12 12:00] VITALS: BP_SYST 135
[2021-07-12] MEDS: ACETAMINOPHEN 325 MG TABLET PO PRN ×2 (12:50→16:36)
[2021-07-12 16:00] VITALS: BP_SYST 129
--- NOTE | 2021-07-12 19:30 | NUR ---
Opening note Received report from day shift. Pt is awake resting in bed. No s/s of respiratory distress. Breathing even and unlabored on RA. No IV access, will attempt to start a new one. No c/o of pain or SOB. Fall and safety precautions in place with bed in lowest position, and call light within reach
[2021-07-12 20:00] VITALS: BP_SYST 126
--- NOTE | 2021-07-12 21:40 | NUR ---
IV insertion 22G in LAC, pt tolerated well
--- NOTE | 2021-07-13 00:15 | NUR ---
Rounds Pt in bed resting. No s/s of acute distress. Fall and safety checks in place
[2021-07-13 00:19] VITALS: BP_SYST 140
--- NOTE | 2021-07-13 06:41 | NUR ---
Closing note Pt is awake resting in bed. No s/s of respiratory distress. Breathing even and unlabored. IV site is intact and patent. All needs met throughout shift. Fall and safety checks in place with bed in lowest position and call light within reach
[2021-07-13 08:00] VITALS: BP_SYST 119
[2021-07-13] MEDS: D5/0.45 NS 1,000 ML IV SCH (08:30)
--- NOTE | 2021-07-13 11:07 | NUR ---
Dietitian Recommendations *Recommend: High Fiber Cardiac diet. *Consider Ensure Clear TID. Please see Nutritional Assessment for details. DEANN RD
[2021-07-13] MEDS ORDERED: LEVO500T90 PO (11:41)
[2021-07-13 12:25] VITALS: BP_SYST 119
--- NOTE | 2021-07-13 12:50 | NUR ---
NURSING NOTES 0700-1250PM: 0720AM: PATIENT IS RESTING IN BED QUIETLY. NO ADDITIONAL DISTRESS NOTED. BED IN LOW AND LOCK POSITION. CALL LIGHT WITHIN REACH. STABLE CONDITION AT THIS TIME. 02 SAT IN RA 94%. CONT WITH DROPLET ISO DUE TO COVID +. REFUSED IVF. EXPLAINED RISK AND BENEFITS. WILL CONT TO MONITOR. 0800AM: U/S TECH AT THE BEDSIDE. EXPLAINED POC TO THE PATIENT BUT NOT SEEM TO BE IN THE MOOD. NOTED TO BE IRRITATED. NO ADDITIONAL DISTRESS NOTED. WILL CONT TO MONITOR. 0900AM: SITTING AT THE SIDE OF THE BED EATING HIS BREAKFAST. WILL CONT TO MONITOR. 1000AM: PATIENT IS RESTING IN BED ASLEEP. NO ADDITIONAL DISTRESS NOTED. WILL CONT TO MONITOR. 1200PM: PATIENT IS RESTING IN BED WATCHING TV. NO CHANGED FROM PREVIOUS ASSESSMENT. 1235PM: EXPLAINED AND GAVE DC INSTRUCTION TO PATIENT AND HE VERBALIZED UNDERSTANDING. WELL THE PRESCRIPTION (ABT). IV REMOVED FROM THE LAC . IV CATH INTACT WHEN REMOVED. COVER SITE WITH GAUZE AND BAND-AID BUT PATIENT TOOK IT OUT. NO BLEEDING NOTED. PATIENT DOES NOT WANT TO EAT LUNCH AND IN A HURRY TO LEAVE THE HOSPITAL. NOTED TO BE IRRITATED WHEN TALKING TO HIS ON THE PHONE. 1250PM: LEFT THE UNIT IN A STABLE CONDITION ACCOMPANIED BY THE PRIMARY NURSE. ALL PERSONAL BELONGINGS GIVEN TO PATIENT AND DENIES MISSING ITEMS. REFUSED W/C AT THIS TIME AND RATHER WALK. ABLE TO WALK INDEPENDENTLY WITH STEADY GAIT. PICKED UP THE PATIENT. NO ADDITIONAL DISTRESS NOTED.
== END 2021-07-13 12:40 | disposition home or self-care (01) ==
LOC: SED 13:55 → SMU 18:26
PROVIDERS: ADMIT Preventive Medicine Preventive Medicine/Occupational Environmental Medicine; ATTEND Preventive Medicine Preventive Medicine/Occupational Environmental Medicine
DX: K80.70 Calculus of gallbladder and bile duct without cholecystitis without obstruction (principal); U07.1 COVID-19; K76.0 Fatty (change of) liver, not elsewhere classified; I10 Essential (primary) hypertension; J45.909 Unspecified asthma, uncomplicated; E66.9 Obesity, unspecified; K57.90 Diverticulosis of intestine, part unspecified, without perforation or abscess without bleeding; Z90.49 Acquired absence of other specified parts of digestive tract; Z68.34 Body mass index [BMI] 34.0-34.9, adult
CPT/HCPCS: 36415; 71045; 76376; 76700-TC; 76705; 80048; 80053; 81003; 82150; 83605; 83690; 83735; 84100; 85025; 85651-TC; 86140; 96372; 99285; J0456; J0696; J1885; J1956; J2270; J2405; J7050